=== PATIENT | male | born 1995 | race Asian ===

== ENCOUNTER 2018-07-07 09:05 | Outpatient (CLI) | payer OTHER ==
--- NOTE | 2018-07-07 11:59 | ULT ---
ABDOMEN ULTRASOUND: History: Elevated LFTs. Comparison: None. Technique: Utilizing a multihertz transducer, sonographic imaging of the abdomen was performed in the longitudinal transverse plane. FINDINGS: Visualized hepatic parenchyma has a slightly heterogeneous echotexture which may be due to hepatic st eatosis or hepatocellular disease. Limited evaluation for hepatic masses or intrahepatic visualizatio n. The contour of the hepatic margin is maintained. Right hepatic lobe measures 17 cm. The head and proximal pancreatic body have normal echotexture. Pancreas is obscured by bowel gas. Visualized aorta, IVC are unremarkable. Common bile duct diameter is 0.3 cm. No sonographic evidence of cholelithiasis, gallbladder wall thickening or pericholecystic fluid. Main portal vein is patent. Appropriate direction of flow. Bilaterally, no hydronephrosis. Kidneys have a normal cortical echotexture. Right kidney measures 1.0 x 4.7 x 5.2 cm. Left kidney measures 11.1 x 5.0 x 5.2 cm. Spleen measures 11.8 cm and has a normal echotexture. IMPRESSION: Unremarkable abdominal ultrasound, with the exception of mild heterogeneity of the hepatic parenchyma l which may be due to hepatic steatosis or hepatocellular disease. Correlate clinically. Further eval uation with CT if clinically indicated. POS: [facility]
== END 2018-07-07 09:06 | disposition home or self-care (01) ==
LOC: SCSULT 09:05
PROVIDERS: ATTEND Family Medicine
DX: R74.8 Abnormal levels of other serum enzymes (principal)
CPT/HCPCS: 76700

== ENCOUNTER 2019-06-15 07:20 | Day surgery (SDC) | payer OTHER ==
[2019-06-12 14:48] VITALS: BMI 30.7
[2019-06-15 07:38] LABS: INR-International Normal Ratio 0.9; PTT 29.6 SEC (22.9-36.1); Prothrombin Time 12.1 SEC (12.0-14.7)
[2019-06-15] MEDS ORDERED: Fentanyl 100 MCG/2 ML VIAL ONE (08:38)
[2019-06-15] MEDS ORDERED: Midazolam HCl 2 mg/2 ml Vial ONE (08:38)
[2019-06-15 09:26] VITALS: BP 130/88; TEMP 97.7
--- NOTE | 2019-06-15 10:43 | ULT ---
Hepatic Doppler ultrasound: 06/15/2019 COMPARISON: None HISTORY: Abnormal liver function test TECHNIQUE: Multiplanar grayscale sonographic imaging of the abdomen obtained. The hepatic and splenic vasculature is assessed with color flow and spectral analysis FINDINGS: The visualized pancreas is unremarkable. The tail is obscured by bowel gas. No focal liver lesion or intrahepatic biliary dilatation is appreciated. The portal vein, hepatic art rosenda, intrahepatic portal system, hepatic veins, splenic artery, and splenic vein are patent and demonstrate appropriate waveforms and flow direction. The spleen measures up to 11 cm, within normal limits. The right kidney measures 9.7 cm in craniocaudal dimension and demonstrates no stone, hydronephrosis, or mass. No gallbladder wall thickening or pericholecystic fluid. No gallstones are noted. The imaged IVC and aorta appear within normal limits. The computer repairer reports a negative Youngblood's sig n. IMPRESSION: Unremarkable hepatic Doppler ultrasound.
[2019-06-15] MEDS ORDERED: Acetaminophen 500 MG TAB ONE (11:00)
--- NOTE | 2019-06-15 13:11 | ULT ---
PROCEDURE ULTRASOUND GUIDED RANDOM LIVER BIOPSY: INDICATION: Abnormal liver function test. FINDINGS: A 2.3 cm length 18-gauge core specimen obtained from the left lobe of the liver using ultrasound guid ance. The specimen was placed in formalin for pathology. PROCEDURE NOTE: Ultrasound showed adequate left lobe of the liver. Subxiphoid approach was selected. The skin was p repped and draped in a sterile manner. Local anesthesia was administered with Lidocaine and bicarb u nder ultrasound guidance. CONSCIOUS SEDATION: The patient was given 0.5 mcg Fentanyl and 1.0 mg Versed IV prior to procedure for conscious sedation . Tiny skin angelina was made with scalpel. A 17-gauge guide needle with trocar in place was introduced in to the left lobe of the liver using ultrasound guidance. Trocar removed and the 18-gauge biopsy need le inserted. A 2.3 cm length 18 gauge core specimen was obtained. The needle was removed. Post procedure ultrasound showed no evidence of hematoma. The patient arun ated the procedure well. The patient will be observed in recovery prior to discharge. POS: [facility]
== END 2019-06-15 12:05 | disposition home or self-care (01) ==
LOC: ULT 07:20
PROVIDERS: ATTEND Internal Medicine Gastroenterology
PROC: BF45ZZZ Ultrasonography of Liver (ICD-10-PCS; principal; 2019-06-15)
PROC: 0FB23ZX Excision of Left Lobe Liver, Percutaneous Approach, Diagnostic (ICD-10-PCS; principal; 2019-06-15)
DX: K76.9 Liver disease, unspecified (principal); F41.9 Anxiety disorder, unspecified; F32.9 Major depressive disorder, single episode, unspecified; Z79.899 Other long term (current) drug therapy
CPT/HCPCS: 36415; 47000; 76705; 76942; 85610; 85730; 88307; 88313; J2250; J3010